=== PATIENT | female | born 1990 | race Caucasian/White ===

== ENCOUNTER 2018-11-17 20:32 | Emergency (ER) | payer BC ==
[~2018-11-17] VITALS: Ht 162.6 cm; Wt 59.0 kg
[2018-11-17 20:33] VITALS: BP 116/85
--- NOTE | 2018-11-17 20:33 | NUR ---
TO BED # 09 AMBULATORY
--- NOTE | 2018-11-17 20:40 | NUR ---
28 YO F BIB SELF AND SISTER PRESENTS TO ED C/O DIZZINESS, N/V AND BODY ACHES X 1 DAY. PT STATES SHE WENT OUT LAST NIGHT AND HAD 2 ALCOHOLIC DRINKS AND THINKS THAT IS WHAT IS CAUSING HER TO FEEL ILL. PT DENIES FEVER/CHILLS. DENIES RECREATIONAL DRUGS. -- PT LETHARGIC, AROUSABLE TO VERBAL STIMULI. ANSWERING QUESTIONS APPROPRIATELY. BEHAVIOR IS WITHDRAWN. PT APPEARS UNCOMFORTABLE. -- SKIN PINK, WARM, DRY. BREATHING EVEN, UNLABORED. PMH-- DENIES RX-- DENIES
[2018-11-17] MEDS ORDERED: NACL 0.9% 1,000 ML IV ONE ×2 (21:30→22:50)
[2018-11-17] MEDS ORDERED: KETOROLAC 15 MG/ML VIAL IVP ONE (21:30)
[2018-11-17] MEDS ORDERED: ONDANSETRON 4 MG/2 ML VIAL IVP ONE ×2 (21:30→23:05)
--- NOTE | 2018-11-17 22:00 | NUR ---
PT VOMITING BILE AT BEDSIDE. FLUIDS INFUSING. MEDICATIONS ADMINISTERED ORDERED. RISKS/BENEFITS REVIEWED. WILL CONTINUE TO MONITOR.
[2018-11-17 23:22] LABS: HEMATOCRIT 39.9 % (36-48); HEMOGLOBIN 13.4 g/dL (12.0-16.0); LYMPHOCYTES # (AUTO) 0.8 K/uL (2.5-16.5); LYMPHOCYTES % (AUTO) 9.6 % (20.5-51.1); MEAN CORPUSCULAR HEMOGLOBIN 31 pg (27-31); MEAN CORPUSCULAR HGB CONC 34 g/dL (33-37); MEAN CORPUSCULAR VOLUME 91.3 fL (80-94); MONOCYTES # (AUTO) 0.5 K/uL (0.8-1.0); MONOCYTES % (AUTO) 5.9 % (1.7-9.3); NEUTROPHILS # (AUTO) 6.9 K/uL (1.8-7.7); PLATELET COUNT (AUTO) 257 K/uL (140-450); RED BLOOD CELL COUNT(AUTO) 4.37 MIL/uL (4.20-5.40); RED CELL DISTRIBUTION WIDTH 12.7 % (11.6-13.7); WHITE BLOOD COUNT (AUTO) 8.1 K/uL (4.8-10.8)
[2018-11-17 23:36] LABS: ANION GAP 12.4 (8-16); CREATININE 0.5 mg/dL (0.6-1.3); POTASSIUM 3.4 mmol/L (3.5-5.1)
[2018-11-17 23:42] LABS: ALBUMIN 4.1 g/dL (3.4-5.0); TOTAL BILIRUBIN 0.6 mg/dL (0.0-1.0)
[2018-11-17 23:43] LABS: NEUTROPHILS % (AUTO) 84.5 % (42.2-75.2)
[2018-11-18 00:08] LABS: BARBITURATE, URINE NEG. ng/ml (NEG <=200); BENZODIAZEPINE, URINE NEG. ng/mL (NEG <=200); CANNABINOID, URINE NEG. ng/mL (NEG <=50); COCAINE, URINE NEG. ng/mL (NEG <=300); OPIATE, URINE POS. ng/mL (NEG <=2000); PHENCYCLIDINE SCREEN,URINE NEG. ng/mL (NEG <=25)
--- NOTE | 2018-11-18 00:19 | NUR ---
PT BACK FROM RAD
[2018-11-18 01:15] VITALS: BP 101/78
--- NOTE | 2018-11-18 01:15 | NUR ---
Patient discharged with v/s stable. Written and verbal after care instructions given and explained. Patient alert, oriented and verbalized understanding of instructions. Ambulatory with steady gait. All questions addressed prior to discharge. ID band removed. Patient advised to follow up with PMD. Rx of Miralax, Zofran, Mineral oil given. Patient educated on indication of medication including possible reaction and side effects. Opportunity to ask questions provided and answered.
== END 2018-11-18 01:15 | disposition home or self-care (01) ==
LOC: MED 20:32
DX: K59.00 Constipation, unspecified (principal); F11.90 Opioid use, unspecified, uncomplicated; R11.2 Nausea with vomiting, unspecified
CPT/HCPCS: 36415; 74022; 80053; 80305; 83690; 84703; 85025; 96361; 96374; 96375; 96376; 99283; G0482; J1885; J2405; J7030

== ENCOUNTER 2019-06-03 16:06 | Emergency (ER) | payer BC, OTHER ==
[~2019-06-03] VITALS: Ht 149.9 cm; Wt 54.4 kg
--- NOTE | 2019-06-03 16:06 | NUR ---
Patient BIBA BLS, transferred to bed 1. RN evaluating patient at bedside.
[2019-06-03 16:08] VITALS: BP 123/82
--- NOTE | 2019-06-03 16:11 | NUR ---
28 Y/O F C/C ANXIETY,NAUSEA/VOMITING,ALCOHOL INTOXICATION X2 DAYS, PT BIBA FROM HOME. PER SISTER PT HAD ALCOHOL INTAKE IN THE WEEKEND. PT A/OX4, COOPERATIVE. PER PT NKA. NO HX. NO RX. NO DIARRHEA. PER PT UNABLE TO TOLERATE FLUID INTAKE AND WITH POOR APPETITE X2 DAYS. SIDE RAIL X1. SISTER AT BEDSIDE.
[2019-06-03] MEDS ORDERED: ONDANSETRON 4 MG/2 ML VIAL IVP ONE (16:20)
[2019-06-03] MEDS ORDERED: NACL 0.9% 1,000 ML IV ONE ×2 (16:20→17:55)
[2019-06-03] MEDS ORDERED: LORazepam 2 MG/ML VIAL IVP ONE (16:50)
--- NOTE | 2019-06-03 17:50 | NUR ---
Dr. Patton evaluating patient at bedside.
[2019-06-03] MEDS ORDERED: diphenhydrAMINE 50 MG/ML VIAL IVP ONE ×2 (17:55→18:55)
[2019-06-03] MEDS ORDERED: KETOROLAC 30 MG/ML VIAL IVP ONE (18:05)
[2019-06-03 18:17] LABS: BASOPHILS % (AUTO) 0.1 % (0.0-2.0); HEMATOCRIT 39.7 % (36-48); HEMOGLOBIN 13.7 g/dL (12.0-16.0); LYMPHOCYTES # (AUTO) 0.4 K/uL (2.5-16.5); MEAN CORPUSCULAR HEMOGLOBIN 31 pg (27-31); MEAN CORPUSCULAR HGB CONC 35 g/dL (33-37); MONOCYTES # (AUTO) 0.1 K/uL (0.8-1.0); MONOCYTES % (AUTO) 1.3 % (1.7-9.3); NEUTROPHILS # (AUTO) 5.6 K/uL (1.8-7.7); NEUTROPHILS % (AUTO) 91.6 % (42.2-75.2); PLATELET COUNT (AUTO) 280 K/uL (140-450); RED BLOOD CELL COUNT(AUTO) 4.46 MIL/uL (4.20-5.40); RED CELL DISTRIBUTION WIDTH 12.7 % (11.6-13.7); WHITE BLOOD COUNT (AUTO) 6.1 K/uL (4.8-10.8)
[2019-06-03 18:26] LABS: CARBON DIOXIDE 23.7 mmol/L (21-32); CREATININE 0.6 mg/dL (0.6-1.3); POTASSIUM 3.7 mmol/L (3.5-5.1)
--- NOTE | 2019-06-03 19:16 | NUR ---
REPORT GIVEN TO ROSALVA ARIAS FOR CONTINUITY OF CARE
[2019-06-03 19:26] VITALS: BP 123/82
--- NOTE | 2019-06-03 19:26 | NUR ---
Patient discharged with v/s stable. Written and verbal after care instructions given and explained. Patient alert, oriented and verbalized understanding of instructions. Ambulatory with steady gait. All questions addressed prior to discharge. ID band removed. Patient advised to follow up with PMD. Rx of BENADRYL, ZOFRAN, AND MOTRIN given. Patient educated on indication of medication including possible reaction and side effects. Opportunity to ask questions provided and answered.
== END 2019-06-03 19:26 | disposition home or self-care (01) ==
LOC: MED 16:06
DX: F10.129 Alcohol abuse with intoxication, unspecified (principal); R11.2 Nausea with vomiting, unspecified; R68.83 Chills (without fever); F17.210 Nicotine dependence, cigarettes, uncomplicated
CPT/HCPCS: 36415; 80048; 85025; 96361; 96374; 96375; 96376; 99283; J1200; J1885; J2060; J2405; J7030